=== PATIENT | female | born 1955 | race Caucasian/White ===

== ENCOUNTER 2019-07-30 09:12 | Outpatient (REF) | payer BC, SELFPAY ==
[2019-07-30 12:29] LABS: Cholesterol 263 mg/dL (0-200); Glucose 107 mg/dL (65-115); HDL Cholesterol 56 mg/dL (60-100); LDL Cholesterol Calculated 175 mg/dL (50-129); LDL HDL Ratio 3.13 RATIO (0.00-3.22); Triglycerides 159 mg/dL (0-150)
[2019-07-30 13:24] LABS: Estmated Average Glucose 111; Hemoglobin A1C 5.5 % (4.0-6.0)
== END 2019-07-30 09:13 | disposition home or self-care (01) ==
LOC: LAB 09:12
PROVIDERS: Family Provider Family Medicine; PCP Family Medicine; Visit Provider Dermatology
DX: Z01.89 Encounter for other specified special examinations (principal)
CPT/HCPCS: 80061; 82947; 83036

== ENCOUNTER → 2023-02-12 11:49 | Outpatient (BNVA) | payer MEDICARE, SELFPAY | PROVIDERS: Family Provider Family Medicine; PCP Clinical Nurse Specialist Adult Health; Visit Provider Clinical Nurse Specialist Adult Health | DX: I10 Essential (primary) hypertension (principal); N95.1 Menopausal and female climacteric states; F17.200 Nicotine dependence, unspecified, uncomplicated; H60.91 Unspecified otitis externa, right ear | CPT/HCPCS: 80053; 80061; 84443; 85025 ==

== ENCOUNTER 2023-03-12 15:04 | Outpatient (CLI) | payer MEDICARE, SELFPAY ==
--- NOTE | 2023-03-12 15:30 | XR_ITS ---
WS: [id number] SCREENING DEXA SCAN [id number] CLINICAL INFORMATION: post menopausal COMPARISON: None. FINDINGS: The L1-L4 bone mineral density measures 1.269 g/cm2. This corresponds to a T score score of 0.7 and Z score of 2.4. Left femoral neck bone mineral density measures 1.003 g/cm2. This corresponds to a T score of 0.0 and Z score of 1.3. Right femoral neck bone mineral density measures 0.957 g/cm2. This corresponds to a T score -0.4of an d Z score of 0.9. Mean femoral neck bone mineral density measures 0.980 g/cm2. This corresponds to a T score of -0.2 an d Z score of 1.1. IMPRESSION: Normal bone mineralization. Patient's FRAX calculated 10 year probability for major osteoporotic fracture is 9.2% and osteoporoti c hip fracture is 1.7%.
== END 2023-03-12 15:05 | disposition home or self-care (01) ==
PROVIDERS: Family Provider Family Medicine; PCP Clinical Nurse Specialist Adult Health; Visit Provider Clinical Nurse Specialist Adult Health
DX: N95.1 Menopausal and female climacteric states (principal)
CPT/HCPCS: 77080

== ENCOUNTER 2023-05-11 07:51 | Emergency (ER) | payer MEDICARE, SELFPAY ==
[2023-05-11 08:02] VITALS: BP 159/82; PULSE 79; RESP 16; TEMP 36.8; O2SAT 97
--- NOTE | 2023-05-11 08:32 | ECG_ITS ---
[facility] Test Date: 2023-05-11 Pat Name: Ricarda Hernandes Department: Room: Gender: Female Head Boys Tennis Coach: : 1955 Requested By: Anthony Woods Order Number: [id number] Aleyda MD: Howie Barton M.D. Measurements Intervals [place] Rate: 63 P: -31 MI: 156 QRS: 45 QRSD: 94 T: 50 QT: 410 QTc: 422 Interpretive Statements SINUS RHYTHM No previous ECG available for comparison Electronically Signed On 05-11-2023 22:06:51 SENIOR TECHNICAL ARCHITECT by Howie Barton M.D. [id number]
--- NOTE | 2023-05-11 08:36 | ED_ITS ---
HPI - General Adult General: Chief complaint: General Medical Stated complaint: Bp Time Seen by Provider: 05/11/23 08:19 Source: patient Mode of arrival: ambulatory History of Present Illness: 68-year-old female history hypertension her blood pressures been up to the 170s 180s overnight she has a little bit of a headache he did take her blood pressure medicine this morning. She denies any chest pain or discomfort metrical speech swallowing or balance Onset (ago): hour(s) Relieving factors: medication Exacerbating factors: none Associated symptoms: Deny chest pain, confusion, cough, diaphoresis, decreased appetite, dyspnea, fevers/chills, headache(s), malaise, nausea, rash, palpitations, seizures, short of breath, syncope, vomiting or weakness Treatments prior to arrival: none Review of Systems Const: Denies: malaise or diaphoresis Card: Denies: chest pain, palpitations or syncope Resp: Denies: dyspnea GI: Denies: nausea or vomiting : Denies: dysuria, urinary frequency or urinary urgency Musc: Denies: neck pain or back pain Skin/Breast: Denies: rash Neuro: Denies: headache(s) or confusion PFSH ED PFSH: Medical History Essential hypertension Tobacco dependence Surgical History Hx of cataract extraction Hx of hysterectomy Family History Father Cancer Hypertension Other CAD (coronary artery disease) Denies family history of Diabetes Clotting disorder Anesthesia complication Bleeding disorder Social History Smoking and tobacco/nicotine status: current every day tobacco/nicotine user cigarettes [ Other cigarette details: 50 pack year history] Alcohol intake: never Substance/Drug Use: never Marital status: Current occupational status: retired Current occupation: but now working at [employer] Physical Exam Const: COMMON NORMALS: no acute distress GENERAL APPEARANCE: cooperative and comfortable ORIENTATION/CONSCIOUSNESS: Yes awake, Yes oriented to person, Yes oriented to place and Yes oriented to time HENMT: COMMON NORMALS: normocephalic, atraumatic and hearing grossly normal bilaterally HEAD & SCALP: normocephalic and atraumatic Resp: COMMON NORMALS: normal respiratory effort, No retractions, No use of accessory muscles and clear to auscultation bilaterally AUSCULTATION: clear to auscultation bilaterally Cardio: COMMON NORMALS: regular rate, regular rhythm and No murmurs present (Cardio) RATE: regular rate RHYTHM: regular rhythm GI: COMMON NORMALS: Soft to palpation and No hepatosplenomegaly present AUSCULTATION: Yes normoactive bowel sounds PALPATION: Yes Soft to palpation, No Tenderness to palpation present (GI), No Guarding due to palpation present (GI) and Yes No hepatosplenomegaly present Extremity: COMMON NORMALS: normal to inspection, capillary refill normal, no clubbing, cyanosis or edema, no calf tenderness and no pedal edema Neuro: SENSORIUM/ORIENTATION: Yes oriented to person, Yes oriented to place and Yes oriented to time Skin: COMMON NORMALS: no rashes or lesions noted GENERAL SKIN EXAM: no rashes or lesions noted Course Vital Signs: Vital signs: Vital Signs Temperature 98.2 F 05/11/23 08:02 Pulse Rate 64 05/11/23 09:14 Respiratory Rate 16 05/11/23 09:14 Blood Pressure 140/74 05/11/23 09:14 Pulse Oximetry 94 05/11/23 09:14 Oxygen Delivery Me thod Room Air 05/11/23 08:02 [facility] - General Adult Medical Decision Making Blood pressure is stable no accelerated hypertension repeat pressure 140/74 do not recommend any change in medication at this point continue routine previously prescribed medications will log blood pressures follow-up with primary care Medical Records I reviewed the patient's medical records. Lab Data I reviewed the patient's lab results. 05/11/23 08:28 05/11/23 08:28 Laboratory Results WBC 9.13 10^3/uL (3.29-11.43) 05/11/23 08:28 RBC 4.40 10^6/uL (3.85-5.65) 05/11/23 08:28 Hgb 14.20 g/dL (11.27-16.99) 05/11/23 08:28 Hct 42.4 % (36-47) 05/11/23 08:28 MCV 96.4 fl (85-98) 05/11/23 08:28 MCH 32.3 pg (27-33) 05/11/23 08:28 MCHC 33.5 g/dL (30-55) 05/11/23 08:28 RDW 12.6 % (12.1-15.1) 05/11/23 08:28 Plt Count 181 10^3/cmm (157-399) 05/11/23 08:28 MPV 9.4 fL (7.4-10.4) 05/11/23 08:28 Neut % (Auto) 73.4 % 05/11/23 08:28 Lymph % (Auto) 20.4 % 05/11/23 08:28 Mccormick % (Auto) 4.7 % 05/11/23 08:28 Eos % (Auto) 1.0 % 05/11/23 08:28 Baso % (Auto) 0.2 % 05/11/23 08:28 Neut # (Auto) 6.70 10^3/uL (1.8-7.7) 05/11/23 08:28 Lymph # (Auto) 1.9 10^3/uL (0.8-4.8) 05/11/23 08:28 Mccormick # (Auto) 0.4 10^3/uL (0.2-0.9) 05/11/23 08:28 Eos # (Auto) 0.1 10^3/uL (0.0-0.8) 05/11/23 08:28 Baso # (Auto) 0.0 10^3/uL (0.0-0.1) 05/11/23 08:28 Nucleated RBC % (auto) 0 % 05/11/23 08:28 Nucleated RBCs # 0.0 /100WBC 05/11/23 08:28 Sodium 138 mmol/L (136-145) 05/11/23 08:28 Potassium 3.9 mmol/L (3.5-5.1) 05/11/23 08:28 Chloride 105 mmol/L (98-107) 05/11/23 08:28 Carbon Dioxide 24 mmol/L (22-29) 05/11/23 08:28 Anion Gap 12.9 (5-19) 05/11/23 08:28 BUN 15 mg/dL (8-23) 05/11/23 08:28 Creatinine 0.8 mg/dL (0.5-0.9) 05/11/23 08:28 GFR Calculation 71.5 mL/min (90-130) L 05/11/23 08:28 Glucose 96 mg/dL (65-115) 05/11/23 08:28 Calculated Osmolality 287 mOsm/kg (285-295) 05/11/23 08:28 Calcium 9.2 mg/dL (8.5-10.5) 05/11/23 08:28 No radiology studies performed this visit Discharge Plan Discharge Patient Disposition: Home Clinical Impression: Essential hypertension Condition: Stable Prescriptions: No Action losartan 25 mg tablet 25 mg PO DAILY Qty: 90 3RF Discharge Orders: Discharge ED (Routine); Ordered 05/11/23 Ordered By: Anthony Lubin Referrals: Ashok Vicente, BREAST BUFFER [Primary Care Provider] - Patient Instructions: Opioid Safety, Pain Management Activity Restrictions/Additional Instructions: Thank you for choosing [facility] for your healthcare needs today. Please realize this is an emergency room and that we are providing you with a medical screening exam and this may not be complete and all inclusive of all the testing and or work up that you may need to determine your ailment or severity of your illness. It is very important that you follow up as instructed or that you return to the Emergency Department should you have concerns or if your condition changes or worsens in any way. You are seen today for elevated blood pressure. Your blood pressure was slightly elevated in the emergency room but did not require any intervention. Recommend you continue current blood pressure medications monitor blood pressures at home and log them review with your primary care doctor within the next 1 to 2 weeks. Coding Level of Care Code ED Team Otr Truck Driver for Keyana Busby
[2023-05-11 08:40] LABS: Basophils % 0.2 %; Eosinophils # 0.1 10^3/uL (0.0-0.8); Hematocrit 42.4 % (36-47); Lymphocytes # 1.9 10^3/uL (0.8-4.8); Lymphocytes % 20.4 %; Mean Corpuscular HGB Conc 33.5 g/dL (30-55); Mean Corpuscular Hemoglobin 32.3 pg (27-33); Mean Corpuscular Volume 96.4 fl (85-98); Mean Platelet Volume 9.4 fL (7.4-10.4); Monocytes # 0.4 10^3/uL (0.2-0.9); Monocytes % 4.7 %; Neutrophils % 73.4 %; Nucleated Red Blood Cells % 0 %; Platelet Count 181 10^3/cmm (157-399); Red Cell Distribution Width 12.6 % (12.1-15.1); White Blood Count 9.13 10^3/uL (3.29-11.43)
[2023-05-11 08:48] VITALS: BP 138/75; PULSE 61; RESP 16; O2SAT 94
[2023-05-11 08:53] LABS: Anion Gap 12.9 (5-19); Blood Urea Nitrogen 15 mg/dL (8-23); Calcium 9.2 mg/dL (8.5-10.5); Carbon Dioxide 24 mmol/L (22-29); Chloride 105 mmol/L (98-107); Glomerular Filtration Rate 71.5 mL/min (90-130); Glucose 96 mg/dL (65-115); Osmolality Calculated 287 mOsm/kg (285-295); Potassium 3.9 mmol/L (3.5-5.1); Sodium 138 mmol/L (136-145)
[2023-05-11 09:14] VITALS: BP 140/74; PULSE 64; RESP 16; O2SAT 94
== END 2023-05-11 09:15 | disposition home or self-care (01) ==
PROVIDERS: Emergency Provider Family Medicine; PCP Clinical Nurse Specialist Adult Health
DX: I10 Essential (primary) hypertension (principal); F17.210 Nicotine dependence, cigarettes, uncomplicated
CPT/HCPCS: 36415; 80048; 85025; 93005; 99284

== ENCOUNTER 2023-07-22 08:04 | Outpatient (CLI) | payer MEDICARE, SELFPAY ==
--- NOTE | 2023-07-22 08:16 | MM_ITS ---
WS: [id number] BILATERAL 3D TOMOSYNTHESIS DIGITAL SCREENING MAMMOGRAPHY WITH CAD CLINICAL INFORMATION: screening for breast cancer HISTORY: Screening mammogram. No current complaints. COMPARISON: Baseline TECHNIQUE: Bilateral CC and MLO views. FINDINGS: Scattered fibroglandular densities bilaterally. No suspicious focal mass, asymmetry, calcifications, or architectural distortion. No evidence of malignancy. Incidental punctate and lucent centered calci fications. IMPRESSION: MM/[place] [id number] BI-RADS: 2-Benign FOLLOW UP: 1 Year Follow-up Recommend return to annual screening mammography.
== END 2023-07-22 08:05 | disposition home or self-care (01) ==
LOC: RAD 08:04
PROVIDERS: PCP Clinical Nurse Specialist Adult Health; Visit Provider Clinical Nurse Specialist Adult Health
DX: Z12.31 Encounter for screening mammogram for malignant neoplasm of breast (principal); R92.323 Mammographic fibroglandular density, bilateral breasts
CPT/HCPCS: 77063; 77067

== ENCOUNTER 2023-07-31 06:01 | Outpatient (CLI) | payer MEDICARE, SELFPAY ==
--- NOTE | 2023-07-31 06:15 | US_ITS ---
WS: [id number] INDICATION: LEFT upper chest lump TECHNIQUE: Ultrasound area of interest LEFT upper chest FINDINGS: Ultrasound soft tissue LEFT upper chest demonstrates a region of increased echogenicity cor responding to the area of interest. This most like represents a poorly circumscribed lipoma. No other suspicious findings. IMPRESSION: Suspected lipoma in the area of interest
== END 2023-07-31 06:02 | disposition home or self-care (01) ==
LOC: RAD 06:02
PROVIDERS: PCP Clinical Nurse Specialist Adult Health; Visit Provider Clinical Nurse Specialist Adult Health
DX: D17.1 Benign lipomatous neoplasm of skin and subcutaneous tissue of trunk (principal); I10 Essential (primary) hypertension
CPT/HCPCS: 76882

== ENCOUNTER → 2023-08-21 08:08 | Outpatient (BNVA) | payer MEDICARE, SELFPAY | PROVIDERS: PCP Clinical Nurse Specialist Adult Health; Referring Provider Clinical Nurse Specialist Adult Health; Visit Provider Internal Medicine Cardiovascular Disease | DX: I49.1 Atrial premature depolarization (principal); I49.3 Ventricular premature depolarization; I47.10 Supraventricular tachycardia, unspecified | CPT/HCPCS: 93246 ==

== ENCOUNTER → 2023-10-30 07:58 | Outpatient (BNVA) | payer MEDICARE, SELFPAY | PROVIDERS: PCP Clinical Nurse Specialist Adult Health; Visit Provider Clinical Nurse Specialist Adult Health | DX: I10 Essential (primary) hypertension (principal) | CPT/HCPCS: 80053; 80061; 85025 ==

== ENCOUNTER → 2023-11-06 08:17 | Outpatient (BNVA) | payer MEDICARE, SELFPAY | PROVIDERS: PCP Clinical Nurse Specialist Adult Health; Visit Provider Clinical Nurse Specialist Adult Health | DX: R00.2 Palpitations (principal); I10 Essential (primary) hypertension | CPT/HCPCS: 80048 ==

== ENCOUNTER → 2023-11-27 07:34 | Outpatient (BNVA) | payer MEDICARE, SELFPAY | PROVIDERS: PCP Clinical Nurse Specialist Adult Health; Visit Provider Clinical Nurse Specialist Adult Health | DX: I10 Essential (primary) hypertension (principal) | CPT/HCPCS: 80048 ==

== ENCOUNTER → 2023-12-11 08:26 | Outpatient (BNVA) | payer MEDICARE, SELFPAY | PROVIDERS: PCP Clinical Nurse Specialist Adult Health; Visit Provider Clinical Nurse Specialist Adult Health | DX: I10 Essential (primary) hypertension (principal); R00.2 Palpitations | CPT/HCPCS: 80048 ==

== ENCOUNTER → 2024-03-11 07:18 | Outpatient (BNVA) | payer MEDICARE, SELFPAY | PROVIDERS: PCP Clinical Nurse Specialist Adult Health; Visit Provider Clinical Nurse Specialist Adult Health | DX: I10 Essential (primary) hypertension (principal) | CPT/HCPCS: 80048 ==

== ENCOUNTER 2024-07-04 08:36 | Emergency (ER) | payer MEDICARE, SELFPAY ==
[2024-07-04 08:46] VITALS: BP 179/86; PULSE 63; RESP 21; TEMP 36.8; O2SAT 96; BMI 26.5
--- NOTE | 2024-07-04 10:15 | ED_ITS ---
HPI - General Adult General: Chief complaint: General Medical Stated complaint: high bp Time Seen by Provider: 07/04/24 08:55 History of Present Illness: 69-year-old female presents to the emerg ency department reporting elevated blood pressure. Patient reports for the last year she has had intermittent palpitations. She had an episode last night where she felt like her heart was racing so she decided to check her pulse. She was using her blood pressure cuff to check her pulse. Her pulse was 69 but her blood pressure was elevated to 196/80. She reports she does have hypertension and takes metoprolol tartrate 12.5 mg twice a day and losartan 50 mg once a day. This has not changed over the last year. However, she does not check her blood pressure regularly and does not know whether the medications have been working or not. She denies any headache, visual changes, neurologic symptoms, chest pressure, chest tightness, shortness of breath, diaphoresis, nausea, syncope or presyncope, swelling, orthopnea, fever, chills, hemoptysis. Blood pressure on arrival was 179/86. She did take her losartan 50 mg and metoprolol 12.5 mg this morning around 7:15 AM. Associated symptoms: Deny chest pain, dyspnea, headache(s), nausea, rash, syncope or vomiting Related Data Previous Rx's Medication Instructions Recorded losartan 50 mg tablet 50 mg PO DAILY #90 tabs 03/11/24 aspirin 81 mg tablet,delayed 81 mg PO DAILY #90 tabs 07/04/24 release (Adult Aspirin Regimen) metoprolol succinate 50 mg 50 mg PO DAILY #90 tabs 07/04/24 tablet,extended release 24 hr Allergies Allergy/AdvReac Type Severity Reaction Status Date / Time Sulfa (Sulfonamide Allergy Severe swelling Verified 07/04/24 08:51 Antibiotics) and whelps diphenhydramine Allergy Mild hives Verified 07/04/24 08:51 [From Benadryl] Review of Systems General: Reports: 10 or more systems reviewed and unremarkable except in HPI and below Const: Denies: fever(s) or chills Eyes: Denies: change in vision ENMT: Denies: throat pain Card: Denies: chest pain, edema or syncope Resp: Denies: dyspnea or productive cough GI: Denies: abdominal pain, nausea, vomiting or diarrhea : Denies: flank pain, dysuria or urinary frequency Musc: Denies: neck pain, back pain, extremity pain or extremity swelling Skin/Breast: Denies: rash or erythema Neuro: Denies: headache(s), numbness in extremities, weakness in extremities, lack of coordination or difficulty walking PFSH ED PFSH: Medical History Lipoma of anterior chest wall Post menopausal syndrome Essential hypertension Tobacco dependence Surgical History Hx of cataract extraction Hx of hysterectomy Family History Father Cancer Hypertension Other CAD (coronary artery disease) Denies family history of Diabetes Clotting disorder Anesthesia complication Bleeding disorder Social History Smoking and tobacco/nicotine status: current every day tobacco/nicotine user cigarettes [ Other cigarette details: 50 pack year history] Alcohol intake: never Substance/Drug Use: never Marital status: Current occupational status: retired Current occupation: but now working at [employer] Physical Exam Const: COMMON NORMALS: no limitations, alert and well nourished EXAM LIMITATIONS: no altered mental status HENMT: COMMON NORMALS: normocephalic, atraumatic and external ears normal HEAD & SCALP: normocephalic and atraumatic EXTERNAL EAR: Yes external ears normal MOUTH: no muffled voice Eye: COMMON NORMALS: EOMs intact bilaterally, conjunctivae normal and no scleral icterus CONJUNCTIVA: Yes conjunctivae normal Neck/C-Spine: COMMON NORMALS: no JVD GENERAL: Yes normal visual inspection and Yes trachea midline Resp: COMMON NORMALS: normal respiratory effort, No use of accessory muscles and clear to auscultation bilaterally AUSCULTATION: clear to auscultation bilaterally Cardio: COMMON NORMALS: no JVD, regular rate and regular rhythm RATE: regular rate RHYTHM: regular rhythm GI: COMMON NORMALS: Soft to palpation and non-tender PALPATION: Yes Soft to palpation and No Guarding due to palpation present (GI) Extremity: COMMON NORMALS: normal to inspection Neuro: COMMON NORMALS: moves all extremities, no focal motor deficits and no sensory deficits noted SENSORIUM/ORIENTATION: Yes alert SPEECH: speech normal Psych: COMMON NORMALS: mental status grossly normal, Normal thought process present, cooperative, normal affect and speech normal SPEECH: Yes normal speech THOUGHT PROCESS: Normal thought process present Skin: COMMON NORMALS: no rashes or lesions noted, turgor normal and no jaundice GENERAL SKIN EXAM: no rashes or lesions noted and turgor normal Course Vital Signs: Vital signs: Vital Signs Temperature 98.2 F 07/04/24 08:46 Pulse Rate 63 07/04/24 08:46 Respiratory Rate 21 H 07/04/24 08:46 Blood Pressure 179/86 07/04/24 08:46 Pulse Oximetry 96 07/04/24 08:46 Oxygen Delivery Me thod Room Air 07/04/24 08:46 MDM - General Adult Medical Decision Making Patient presents with asymptomatic hypertension. She only found out that she had elevated blood pressure due to checking her pulse with her blood pressure machine last night. She does have a history of chronic hypertension and has been compliant with her medication. She has had these intermittent palpitations. She reports that she wore a heart monitor about 1 year ago and her doctor told her the top of her heart with sometimes too fast. On examination she does not have any signs of heart failure and I cannot hear any murmur. Her lungs are clear. Her rate is normal and her rhythm is regular today. We discussed the patient's symptoms and possible workup and plan. Ultimately we decided to try and treat her possible arrhythmia (palpitations) and her hypertension both by increasing her metoprolol. We are going to change it from metoprolol to tartrate 12.5 mg twice daily to metoprolol succinate 50 mg once daily. I am also going to add an enteric-coated aspirin daily as she is a smoker as well. I have sent in a referral through case management for her to follow-up with cardiology for palpitations and hypertension. The patient has adamantly denied any other symptoms. Therefore I do not think any other emergent workup or admission is indicated at this time. Patient was given specific return precautions. I have counseled the patient about the risks of tobacco smoking and strongly encouraged her to quit, emphasizing the importance on her overall health. Patient and in agreement with plan No radiology studies performed this visit Discharge Plan Discharge Patient Disposition: Home Clinical Impression: Palpitations, Asymptomatic hypertension Condition: Stable Prescriptions: New aspirin [Adult Aspirin Regimen] 81 mg tablet,delayed release (DR/EC) 81 mg PO DAILY Qty: 90 0RF metoprolol succinate 50 mg tablet extended release 24 hr 50 mg PO DAILY Qty: 90 0RF Discontinued metoprolol tartrate 25 mg tablet 12.5 mg PO BID Qty: 90 3RF No Action losartan 50 mg tablet 50 mg PO DAILY Qty: 90 3RF Discharge Orders: Discharge ED (Routine); Ordered 07/04/24 Ordered By: Osmany Delarosa Referrals: Ashok Vicente, SUPERVISOR [employer]ING [Primary Care Provider] - Discharge Diet: Usual diet Discharge Activity: Increase activity as tolerated Patient Instructions: Heart Palpitations (ED), Hypertension (ED) Activity Restrictions/Additional Instructions: You are experiencing intermittent heart palpitations for the last year. You are also experiencing elevated blood pressure, though it is unclear how long it has been elevated. We are going to try to treat both of these by changing your meto prolol to tartrate 12.5 mg twice a day to metoprolol succinate 50 mg once a day. I have also requested that you take aspirin 81 mg with an enteric coating once daily. It is very important that you work hard to quit smoking; it is the most important thing you can do to improve your health. I have sent in a referral for you to follow-up with cardiology as I would recommend doing an echocardiogram and possibly stress testing given your risk factors. Your laser beam cutter may also consider doing an ambulatory tapeman to see if you are having an abnormal heart rhythm. Return to the emergency department if you feel like passing out, chest discomfort or pressure, shortness of breath, unusual sweating, unexplained jaw pain arm pain or shoulder pain, or other urgent symptoms. Coding Level of Care Code ED Certified Caregiver for Keyana Busby
[2024-07-04 10:41] VITALS: BP 154/93; PULSE 70; O2SAT 95
--- NOTE | 2024-07-05 09:31 | DCPLANNER ---
messaged heart care for er f/u
== END 2024-07-04 10:42 | disposition home or self-care (01) ==
PROVIDERS: Emergency Provider Emergency Medicine; PCP Clinical Nurse Specialist Adult Health
DX: R00.2 Palpitations (principal); I10 Essential (primary) hypertension; F17.210 Nicotine dependence, cigarettes, uncomplicated
CPT/HCPCS: 99283

== ENCOUNTER → 2024-08-26 13:03 | Outpatient (BNVA) | payer MEDICARE, SELFPAY | PROVIDERS: PCP Clinical Nurse Specialist Adult Health; Visit Provider Internal Medicine | DX: R07.9 Chest pain, unspecified (principal); R00.1 Bradycardia, unspecified; I10 Essential (primary) hypertension; R00.2 Palpitations | CPT/HCPCS: 93005; 99204 ==

== ENCOUNTER 2024-09-16 07:57 | Outpatient (CLI) | payer MEDICARE, SELFPAY ==
--- NOTE | 2024-09-16 | ECG_ITS ---
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 The perfusion scan will be documented separately. DATA: Baseline heart rate was 53 beats per minute. Baseline blood pressure was 164/73 millimeters of mercury. Target heart rate was 152. Maximum heart rate achieved was 86. which was 56 % of the predicted target heart rate. Maximum blood pressure was 164/73 millimeters of mercury. The reason for ending the test was completion of the protocol. The patient did not experience any symptoms. ELECTROCARDIOGRAM: BASELINE: Sinus bradycardia normal axis. Interventricular conduction delay, otherwise, no ST-T changes suggestive of ischemia noted. No arrhythmia noted. EXERCISE: After Lexiscan injection, no ST-T changes suggestive of ischemic noted. No arrhythmia noted. CONCLUSION: Please note due to baseline abnormality of the EKG specificity and sensitivity of the EKG portion of LexiScan MIBI stress test will be low 1. EKG not suggestive of ischemia 2. Lexiscan injection unremarkable. 3. Perfusion scan will be documented separately. Electronically Signed On 10-04-2024 20:07:54 CDT by BARRY MARTINEZ [email or web address] [id number]
[2024-09-16 08:01] VITALS: BMI 28.3
--- NOTE | 2024-09-16 08:02 | NMCV_ITS ---
NM marjan perf SPECT r/s* [id number] Ricarda Hernandes Age: 69 Gender: F : 1955 Exam Date: 09/16/2024 08:02 Ordering Phys: Thomas Prado M.D ([email or web address]) Technologist: LINA Galindo Exam Location: [facility] Indications: cp STRESS TEST [facility] IMAGE PROTOCOL Rest/Stress 1 Lexiscan Day Radiopharmaceutical Dose (mCi) Administration Site Administered by Rest: Tc-99m 10.5 IV Gabbie Palacios [facility] Sestamibi Stress:Tc-99m 32.7 IV Gabbie Patriciagle, [facility] Sestamibi Rest: 16-Sep-2024 60 Discovery 630 Stress: 16-Sep-2024 30 Discovery 630 0.4mg Lexiscan. Images obtained in supine and prone position. SPECT RESULTS Technical Quality: Good Raw Data Analysis: Normal Image Corrections: No attenuation or motion correction applied Summed Stress Score: 3 Summed Rest Score: 0 Summed Difference Score: 3 PERFUSION FINDINGS SPECT images demonstrate homogeneous tracer distribution throughout the myocardium. FUNCTIONAL RESULTS (calculated via Gated SPECT) Stress Image LV EF (%): 76 Stress EDV (mL):63 TID: 1.18 Stress ESV (mL):15 FUNCTIONAL FINDINGS: There is normal left ventricular systolic function. IMPRESSIONS 1. Normal myocardial perfusion imaging with no evidence of ischemia 2. LV systolic function is normal Thomas Prado MD (Electronically Signed) Final Date: 16 September 2024 10:37 S
[2024-09-16] MEDS: regadenoson 0.4 Mg/5 ml Syringe IVP (09:25)
[2024-09-16 09:36] VITALS: BP 125/59; PULSE 71
--- NOTE | 2024-09-16 12:45 | USCV_ITS ---
Ricarda Hernandes Age: 69 Gender: F : 1955 Exam Date: 09/16/2024 11:13 Ordering Phys: Thomas Prado M.D ([email or web address]) Technologist: [place] [facility] [place]: chest pain BP: 140 / 70 HR: 54 Rhythm: Sinus Technical Quality: Adequate MEASUREMENTS (Male / Female) Normal Values 2D ECHO LV Diastolic Diameter PLAX 4.3 cm 4.2 - 5.9 / 3.9 - 5.3 cm IVS Diastolic Thickness 1.2 cm 0.6 - 1.0 / 0.6 - 0.9 cm IVS Systolic Thickness 1.5 cm LVPW Diastolic Thickness 1.5 cm 0.6 - 1.0 / 0.6 - 0.9 cm LVPW Systolic Thickness 1.8 cm LVOT Diameter 2.0 cm LV Ejection Fraction 2D Teich 58.7 % LV Ejection Fraction MOD 4C 68.1 % LV Ejection Fraction MOD 2C 57.4 % LV Ejection Fraction 2C AL 57.2 % LA Diameter 4.2 cm RA Systolic Volume 4C AL 31.2 ml RA Systolic Volume 4C MOD 29.4 ml Aorta at Sinotubular Diameter 2.9 cm IVC Diameter 1.5 cm M-MODE LA Ao Ratio MM 1.4 AV Cusp Separation MM 3.2 cm DOPPLER AV Peak Velocity 145.0 cm/s LVOT Peak Velocity 91.0 cm/s AV Area Cont Eq vti 2.1 cm squared AV Area Cont Eq pk 2.0 cm squared MV Peak Velocity 125.0 cm/s MV Area PHT 3.3 cm squared Mitral E to A Ratio 1.0 TV Peak Velocity 173.5 cm/s TR Peak Velocity 233.0 cm/s TR Peak Gradient 21.7 mmHg TV Peak E Velocity 91.0 cm/s PV Peak Velocity 80.5 cm/s FINDINGS Left Ventricle Left ventricle is normal in size. LV systolic function is normal with EF of 55-60%. No regional wall motion abnormalities are seen. Right Ventricle Normal in size and function. Right Atrium Normal in size Left Atrium Normal in size. Mitral Valve Structurally normal mitral valve. Mild mitral regurgitation. Aortic Valve Structurally normal aortic valve. No significant stenosis or regurgitation. Tricuspid Valve Pulmonic Valve Trace pulmonic regurgitation. Pericardium Normal. Aorta Normal in size IVC Appears to be normal CONCLUSIONS LV systolic function is normal with EF of 55-60% Mild mitral regurgitation Trace pulmonic regurgitation No comparison studies are available. Thomas Prado MD (Electronically Signed) Final Date: 28 September 2024 13:07 S
== END 2024-09-16 07:58 | disposition home or self-care (01) ==
PROVIDERS: PCP Family Medicine; Visit Provider Internal Medicine
DX: R07.9 Chest pain, unspecified (principal); R06.02 Shortness of breath; I34.0 Nonrheumatic mitral (valve) insufficiency
CPT/HCPCS: 36415; 78452; 93017; 93306; 96374; A9500; J2785

== ENCOUNTER → 2024-10-28 12:52 | Outpatient (BNVA) | payer MEDICARE, SELFPAY | PROVIDERS: PCP Family Medicine; Visit Provider Internal Medicine | DX: I10 Essential (primary) hypertension (principal); R00.2 Palpitations; F17.210 Nicotine dependence, cigarettes, uncomplicated | CPT/HCPCS: 99214 ==

== ENCOUNTER 2024-12-02 14:46 | Outpatient (CLI) | payer MEDICARE, SELFPAY ==
--- NOTE | 2024-12-02 15:00 | MM_ITS ---
WS: [id number] BILATERAL 3D TOMOSYNTHESIS DIGITAL SCREENING MAMMOGRAPHY WITH CAD CLINICAL INFORMATION: Screening mammogram HISTORY: Screening mammogram. No current complaints. COMPARISON: 2023 TECHNIQUE: Bilateral CC and MLO views. FINDINGS: The breasts are composed of heterogeneous fibroglandular density tissue, which can limit the detection of small underlying mass lesions. No suspicious mass, asymmetry, calcifications, or architectural distortion. No evidence of malignancy. Incidental punctate and lucent centered calcifications. MM/MM [facility] tomosynthesis [id number] IMPRESSION: DENSITY: The breasts are heterogeneously dense, which may obscure small masses. BI-RADS: 2 - Benign FOLLOW UP: 1 Year Follow-up Recommend return to annual screening mammography.
== END 2024-12-02 14:47 | disposition home or self-care (01) ==
LOC: RAD 14:47
PROVIDERS: PCP Family Medicine; Visit Provider Family Medicine
DX: Z12.31 Encounter for screening mammogram for malignant neoplasm of breast (principal); R92.333 Mammographic heterogeneous density, bilateral breasts; R92.1 Mammographic calcification found on diagnostic imaging of breast
CPT/HCPCS: 77063; 77067

== ENCOUNTER → 2024-12-10 07:33 | Outpatient (BNVA) | payer MEDICARE, SELFPAY | PROVIDERS: PCP Family Medicine; Visit Provider Family Medicine | DX: Z00.00 Encounter for general adult medical examination without abnormal findings (principal); Z13.6 Encounter for screening for cardiovascular disorders; E55.9 Vitamin D deficiency, unspecified; Z51.81 Encounter for therapeutic drug level monitoring | CPT/HCPCS: 80053; 80061; 82306; 85025 ==

== ENCOUNTER → 2025-02-02 07:52 | Outpatient (BNVA) | payer MEDICARE, SELFPAY | PROVIDERS: PCP Family Medicine; Visit Provider Family Medicine | DX: Z51.81 Encounter for therapeutic drug level monitoring (principal); E87.6 Hypokalemia; R10.13 Epigastric pain | CPT/HCPCS: 80053; 83690 ==

== ENCOUNTER 2025-02-07 17:25 | Emergency (ER) | payer MEDICARE, SELFPAY ==
[2025-02-07 17:28] VITALS: BP 163/73; PULSE 64; TEMP 37.2; O2SAT 96; BMI 29.2
--- NOTE | 2025-02-07 17:29 | ECG_ITS ---
[employer] Test Date: 2025-02-07 Pat Name: Ricarda Hernandes Department: Room: Gender: Female Director Investment Banking: : 1955 Requested By: Joyce Painting Order Number: [id number] Aleyda MD: Howie Barton M.D. Measurements Intervals Triangle Rate: 61 P: -48 KS: 172 QRS: 57 QRSD: 96 T: 40 QT: 438 QTc: 444 Interpretive Statements SINUS RHYTHM LOW QRS VOLTAGE IN PRECORDIAL LEADS [QRS DEFLECTION < 1.0 mV IN CHEST LEADS] INTERPRETATION BASED ON A DEFAULT AGE OF 40 YEARS Compared to ECG 08/26/2024 13:12:16 Low QRS voltage now present Sinus bradycardia no longer present Electronically Signed On 02-12-2025 09:16:22 CDT by Howie Barton M.D. [email or web address] [id number]
--- NOTE | 2025-02-07 17:30 | XRR_ITS ---
PROCEDURE INFORMATION: Exam: XR Chest Exam date and time: 02/07/2025 5:46 PM Age: 69 years old Clinical indication: Pain; Chest pressure; Additional info: Chest pain TECHNIQUE: Imaging protocol: Radiologic exam of the chest. Views: 1 view. COMPARISON: No relevant prior studies available. FINDINGS: Lungs: Unremarkable. No consolidation. Pleural spaces: No pneumothorax. Blunting of the left costophrenic angle which may represent a small effusion versus superimposition of structures due to patient rotation. Heart/Mediastinum: Unremarkable. No cardiomegaly. Bones/joints: Unremarkable. XR/XR chest 1V portable [id number] IMPRESSION: Questionable small left pleural effusion, otherwise unremarkable chest radiograph.
--- NOTE | 2025-02-07 17:39 | W.ED.CHESTPA ---
Documented by User: Anthony Lubin, DO 02/08/25 13:57 HPI - Chest Pain General: Chief Complaint: Chest Pain Stated Complaint: chest pain, tingling in L hand Time Seen by Provider: 02/07/25 17:29 History of Present Illness: 69-year-old female presents to the emergency room with complaints of episodic chest pain. She had chest pain earlier this year and had a stress test and echocardiogram both of which were normal. 5 days ago she was told her potassium was very low and she started on oral potassium supplement. She was at rest had a short burst of chest pain that lasted few seconds and then be gone. She has not had any other episodes she denies shortness of breath no hemoptysis. She has a chronic baseline cough from smoking which remains unchanged. No history of PE or DVT. Associated symptoms: Deny abdominal pain, dyspnea or fever(s) Related Data Previous Rx's ?Medication ?Instructions ?Recorded aspirin 81 mg tablet,delayed 81 mg PO DAILY #90 tabs 07/04/24 release (Adult Aspirin Regimen) metoprolol succinate 50 mg 50 mg PO DAILY #90 tabs 10/04/24 tablet,extended release 24 hr valsartan 160 mg tablet 160 mg PO DAILY #90 tabs 11/18/24 amlodipine 5 mg tablet 5 mg PO DAILY #30 tabs 12/10/24 furosemide 40 mg tablet 40 mg PO QDAY #30 tabs 12/10/24 spironolactone 25 mg tablet 25 mg PO DAILY #30 tabs 12/10/24 nitroglycerin 0.4 mg sublingual 0.4 mg sublingual Q5M PRN chest 02/02/25 tablet (Nitrostat) pain #30 tabs omeprazole 40 mg capsule,delayed 40 mg PO DAILY #30 caps 02/02/25 release potassium chloride 20 mEq 20 meq PO BID #60 tabs 02/03/25 tablet,extended release(part/cryst) (Klor-Con M) Allergies Allergy/AdvReac Type Severity Reaction Status Date / Time Sulfa (Sulfonamide Allergy Severe swelling Verified 02/07/25 17:37 Antibiotics) and whelps diphenhydramine (From Allergy Mild hives Verified 02/07/25 17:37 Benadryl) Review of Systems Const: Denies: fever(s) or chills Card: Reports: chest pain Resp: Denies: dyspnea GI: Denies: abdominal pain : Denies: dysuria, urinary frequency or urinary urgency Musc: Denies: neck pain or back pain Skin/Breast: Denies: rash PFSH ED PFSH: Medical History Lipoma of anterior chest wall Post menopausal syndrome Essential hypertension Tobacco dependence Surgical History Hx of cataract extraction Hx of hysterectomy Family History Father Cancer Colon cancer, prostate cancer Hypertension Colon cancer Other CAD (coronary artery disease) Denies family history of Diabetes Clotting disorder Anesthesia complication Bleeding disorder Social History Smoking and tobacco/nicotine status: never used tobacco/nicotine Alcohol intake: never Substance/Drug Use: never Marital status: Current occupational status: retired Current occupation: Working at [employer] Physical Exam Const: GENERAL APPEARANCE: cooperative ORIENTATION/CONSCIOUSNESS: Yes awake, Yes oriented to person, Yes oriented to place and Yes oriented to time HENMT: COMMON NORMALS: normocephalic, atraumatic and hearing grossly normal bilaterally HEAD & SCALP: normocephalic and atraumatic Resp: COMMON NORMALS: normal respiratory effort, No retractions, No use of accessory muscles and clear to auscultation bilaterally AUSCULTATION: clear to auscultation bilaterally Cardio: COMMON NORMALS: regular rate, regular rhythm and No murmurs present (Cardio) RATE: regular rate RHYTHM: regular rhythm GI: COMMON NORMALS: Soft to palpation and No hepatosplenomegaly present AUSCULTATION: Yes normoactive bowel sounds PALPATION: Yes Soft to palpation, No Tenderness to palpation present (GI), No Guarding due to palpation present (GI) and Yes No hepatosplenomegaly present Extremity: COMMON NORMALS: normal to inspection, capillary refill normal, no clubbing, cyanosis or edema, no calf tenderness and no pedal edema Neuro: SENSORIUM/ORIENTATION: Yes oriented to person, Yes oriented to place and Yes oriented to time Skin: COMMON NORMALS: no rashes or lesions noted GENERAL SKIN EXAM: no rashes or lesions noted Course Vital Signs: Vital signs: Vital Signs Temperature 98.9 F 02/07/25 17:28 Pulse Rate 52 L 02/07/25 19:08 Respiratory Rate 18 02/07/25 19:00 Blood Pressure 137/51 02/07/25 19:08 Pulse Oximetry 95 02/07/25 19:08 Oxygen Delivery Me thod Room Air 02/07/25 18:40 MDM - Chest Pain Medical Decision Making Care signed out to Dr. Valera at change of shift. See final notes for diagnosis and disposition. Signout from Dr. Lubin at 6 PM. Patient here with chest pain, and low potassium. On reassessment I talked with her about her test results. Her troponin was unremarkable. Her potassium has improved from when it was checked this last week and is now 3.1. She is asymptomatic at this time. Patient had normal cardiac perfusion imaging 5 months ago. Her heart score is less than 3 putting her at less than 1.7% of MACE. We discussed symptoms that should prompt immediate return to the emergency department. Will discharge home with precautions to return for worsening or changing symptoms. Medical Records Lexiscan sestamibi stress test 09/16/2024 There is normal left ventricular systolic function. IMPRESSIONS 1. Normal myocardial perfusion imaging with no evidence of ischemia 2. LV systolic function is normal Thomas Prado MD (Electronically Signed) Final Date: 16 September 2024 Echocardiogram 09/16/2024 CONCLUSIONS LV systolic function is normal with EF of 55-60% Mild mitral regurgitation Trace pulmonic regurgitation No comparison studies are available. Thomas Prado MD (Electronically Signed) Final Date: 28 September 2024 Lab Data 02/07/25 17:58 02/07/25 17:58 Radiology Impressions Chest X-Ray 02/07/25 17:30 IMPRESSION: Questionable small left pleural effusion, otherwise unremarkable chest radiograph. Laboratory Results WBC 9.78 10^3/uL (3.29-11.43) 02/07/25 17:58 RBC 4.32 10^6/uL (3.85-5.65) 02/07/25 17:58 Hgb 13.40 g/dL (11.27-16.99) 02/07/25 17:58 Hct 39.6 % (36-47) 02/07/25 17:58 MCV 91.7 fl (85-98) 02/07/25 17:58 MCH 31.0 pg (27-33) 02/07/25 17:58 MCHC 33.8 g/dL (30-55) 02/07/25 17:58 RDW 13.3 % (12.1-15.1) 02/07/25 17:58 Plt Count 225 10^3/cmm (157-399) 02/07/25 17:58 MPV 9.3 fL (7.4-10.4) 02/07/25 17:58 Neut % (Auto) 64.6 % 02/07/25 17:58 Lymph % (Auto) 27.8 % 02/07/25 17:58 [place] % (Auto) 5.7 % 02/07/25 17:58 Eos % (Auto) 1.2 % 02/07/25 17:58 Baso % (Auto) 0.4 % 02/07/25 17:58 Neut # (Auto) 6.31 10^3/uL (1.8-7.7) 02/07/25 17:58 Lymph # (Auto) 2.7 10^3/uL (0.8-4.8) 02/07/25 17:58 [place] # (Auto) 0.6 10^3/uL (0.2-0.9) 02/07/25 17:58 Eos # (Auto) 0.1 10^3/uL (0.0-0.8) 02/07/25 17:58 Baso # (Auto) 0.0 10^3/uL (0.0-0.1) 02/07/25 17:58 Nucleated RBC % (auto) 0 % 02/07/25 17:58 Nucleated RBCs # 0.0 /100WBC 02/07/25 17:58 Sodium 133 mmol/L (136-145) L 02/07/25 17:58 Potassium 3.1 mmol/L (3.5-5.1) L 02/07/25 17:58 Chloride 98 mmol/L (98-107) 02/07/25 17:58 Carbon Dioxide 22 mmol/L (22-29) 02/07/25 17:58 Anion Gap 16.1 (5-19) 02/07/25 17:58 BUN 10 mg/dL (8-23) 02/07/25 17:58 Creatinine 0.9 mg/dL (0.5-0.9) 02/07/25 17:58 GFR Calculation 62.3 mL/min (90-130) L 02/07/25 17:58 Glucose 125 mg/dL (65-115) H 02/07/25 17:58 Calculated Osmolality 277 mOsm/kg (285-295) L 02/07/25 17:58 Calcium 8.5 mg/dL (8.5-10.5) 02/07/25 17:58 Magnesium 1.9 mg/dL (1.7-2.3) 02/07/25 17:58 Total Bilirubin 0.4 mg/dL (0.15-1.2) 02/07/25 17:58 AST 12 U/L (0-32) 02/07/25 17:58 ALT 11 U/L (0-33) 02/07/25 17:58 Alkaline Phosphatase 70 U/L (35-105) 02/07/25 17:58 Creatine Kinase 70 U/L (26-192) 02/07/25 17:58 Troponin T Baseline 8 ng/L (0-10) 02/07/25 17:58 NT-Pro-B Natriuret Pep 842 pg/mL (0-125) H 02/07/25 17:58 Total Protein 7.0 g/dL (6.6-8.7) 02/07/25 17:58 Albumin 4.1 g/dL (3.5-5.2) 02/07/25 17:58 Globulin 2.9 g/dL (1.3-4.6) 02/07/25 17:58 EKG Data EKG 1: Interpretation: EKG 02/07/2025 1733 normal sinus rhythm rate of 61 MA interval 172 QT 442. No acute ST elevation. Compared to EKG 08/26/2024 Discharge Plan Discharge Patient Disposition: Home Clinical Impression: Chest pain of uncertain etiology Condition: Stable Prescriptions: No Action spironolactone 25 mg tablet 25 mg PO DAILY Qty: 30 6RF amlodipine 5 mg tablet 5 mg PO DAILY Qty: 30 3RF furosemide 40 mg tablet 40 mg PO QDAY Qty: 30 3RF omeprazole 40 mg capsule,delayed release(DR/EC) 40 mg PO DAILY Qty: 30 6RF nitroglycerin [Nitrostat] 0.4 mg tablet, sublingual 0.4 mg sublingual Q5M PRN (Reason: chest pain) Qty: 30 0RF Rx Instructions: do not exceed 3 doses per episode metoprolol succinate 50 mg tablet extended release 24 hr 50 mg PO DAILY Qty: 90 3RF valsartan 160 mg tablet 160 mg PO DAILY Qty: 90 3RF potassium chloride [Klor-Con M20] 20 mEq tablet,ER particles/crystals 20 meq PO BID Qty: 60 0RF aspirin [Adult Aspirin Regimen] 81 mg tablet,delayed release (DR/EC) 81 mg PO DAILY Qty: 90 0RF Discharge Orders: Discharge ED (Routine); Ordered 02/07/25 Ordered By: Celestine Valera Referrals: Roel Arizmendi MD [Primary Care Provider, Family Practice] Patient Instructions: Chest Pain (ED), Patient Portal & [facility]lee Instructions Print Language: Croatian Coding Level of Care Code ED Retail Management Trainee for Chg Fwd Documented by User: Celestine Valera MD 02/07/25 19:04 HPI - Chest Pain General: Chief Complaint: Chest Pain Stated Complaint: chest pain, tingling in L hand Time Seen by Provider: 02/07/25 17:29 Related Data Previous Rx's ?Medication ?Instructions ?Recorded aspirin 81 mg tablet,delayed 81 mg PO DAILY #90 tabs 07/04/24 release (Adult Aspirin Regimen) metoprolol succinate 50 mg 50 mg PO DAILY #90 tabs 10/04/24 tablet,extended release 24 hr valsartan 160 mg tablet 160 mg PO DAILY #90 tabs 11/18/24 amlodipine 5 mg tablet 5 mg PO DAILY #30 tabs 12/10/24 furosemide 40 mg tablet 40 mg PO QDAY #30 tabs 12/10/24 spironolactone 25 mg tablet 25 mg PO DAILY #30 tabs 12/10/24 nitroglycerin 0.4 mg sublingual 0.4 mg sublingual Q5M PRN chest 02/02/25 tablet (Nitrostat) pain #30 tabs omeprazole 40 mg capsule,delayed 40 mg PO DAILY #30 caps 02/02/25 release potassium chloride 20 mEq 20 meq PO BID #60 tabs 02/03/25 tablet,extended release(part/cryst) (Klor-Con M) Allergies Allergy/AdvReac Type Severity Reaction Status Date / Time Sulfa (Sulfonamide Allergy Severe swelling Verified 02/07/25 17:37 Antibiotics) and whelps diphenhydramine (From Allergy Mild hives Verified 02/07/25 17:37 Benadryl) PFSH ED PFSH: Medical History Lipoma of anterior chest wall Post menopausal syndrome Essential hypertension Tobacco dependence Surgical History Hx of cataract extraction Hx of hysterectomy Family History Father Cancer Colon cancer, prostate cancer Hypertension Colon cancer Other CAD (coronary artery disease) Denies family history of Diabetes Clotting disorder Anesthesia complication Bleeding disorder Social History Smoking and tobacco/nicotine status: never used tobacco/nicotine Alcohol intake: never Substance/Drug Use: never Marital status: Current occupational status: retired Current occupation: Working at [employer] Vital Signs: Vital signs: Vital Signs Temperature 98.9 F 02/07/25 17:28 Pulse Rate 52 L 02/07/25 19:08 Respiratory Rate 18 02/07/25 19:00 Blood Pressure 137/51 02/07/25 19:08 Pulse Oximetry 95 02/07/25 19:08 Oxygen Delivery Me thod Room Air 02/07/25 18:40 MDM - Chest Pain Medical Decision Making Signout from Dr. Lubin at 6 PM. Patient here with chest pain, and low potassium. On reassessment I talked with her about her test results. Her troponin was unremarkable. Her potassium has improved from when it was checked this last week and is now 3.1. She is asymptomatic at this time. Patient had normal cardiac perfusion imaging 5 months ago. Her heart score is less than 3 putting her at less than 1.7% of M LISBETH. We discussed symptoms that should prompt immediate return to the emergency department. Will discharge home with precautions to return for worsening or changing symptoms. Lab Data 02/07/25 17:58 02/07/25 17:58 Radiology Impressions Chest X-Ray 02/07/25 17:30 IMPRESSION: Questionable small left pleural effusion, otherwise unremarkable chest radiograph. Laboratory Results WBC 9.78 10^3/uL (3.29-11.43) 02/07/25 17:58 RBC 4.32 10^6/uL (3.85-5.65) 02/07/25 17:58 Hgb 13.40 g/dL (11.27-16.99) 02/07/25 17:58 Hct 39.6 % (36-47) 02/07/25 17:58 MCV 91.7 fl (85-98) 02/07/25 17:58 MCH 31.0 pg (27-33) 02/07/25 17:58 MCHC 33.8 g/dL (30-55) 02/07/25 17:58 RDW 13.3 % (12.1-15.1) 02/07/25 17:58 Plt Count 225 10^3/cmm (157-399) 02/07/25 17:58 MPV 9.3 fL (7.4-10.4) 02/07/25 17:58 Neut % (Auto) 64.6 % 02/07/25 17:58 Lymph % (Auto) 27.8 % 02/07/25 17:58 [place] % (Auto) 5.7 % 02/07/25 17:58 Eos % (Auto) 1.2 % 02/07/25 17:58 Baso % (Auto) 0.4 % 02/07/25 17:58 Neut # (Auto) 6.31 10^3/uL (1.8-7.7) 02/07/25 17:58 Lymph # (Auto) 2.7 10^3/uL (0.8-4.8) 02/07/25 17:58 [place] # (Auto) 0.6 10^3/uL (0.2-0.9) 02/07/25 17:58 Eos # (Auto) 0.1 10^3/uL (0.0-0.8) 02/07/25 17:58 Baso # (Auto) 0.0 10^3/uL (0.0-0.1) 02/07/25 17:58 Nucleated RBC % (auto) 0 % 02/07/25 17:58 Nucleated RBCs # 0.0 /100WBC 02/07/25 17:58 Sodium 133 mmol/L (136-145) L 02/07/25 17:58 Potassium 3.1 mmol/L (3.5-5.1) L 02/07/25 17:58 Chloride 98 mmol/L (98-107) 02/07/25 17:58 Carbon Dioxide 22 mmol/L (22-29) 02/07/25 17:58 Anion Gap 16.1 (5-19) 02/07/25 17:58 BUN 10 mg/dL (8-23) 02/07/25 17:58 Creatinine 0.9 mg/dL (0.5-0.9) 02/07/25 17:58 GFR Calculation 62.3 mL/min (90-130) L 02/07/25 17:58 Glucose 125 mg/dL (65-115) H 02/07/25 17:58 Calculated Osmolality 277 mOsm/kg (285-295) L 02/07/25 17:58 Calcium 8.5 mg/dL (8.5-10.5) 02/07/25 17:58 Magnesium 1.9 mg/dL (1.7-2.3) 02/07/25 17:58 Total Bilirubin 0.4 mg/dL (0.15-1.2) 02/07/25 17:58 AST 12 U/L (0-32) 02/07/25 17:58 ALT 11 U/L (0-33) 02/07/25 17:58 Alkaline Phosphatase 70 U/L (35-105) 02/07/25 17:58 Creatine Kinase 70 U/L (26-192) 02/07/25 17:58 Troponin T Baseline 8 ng/L (0-10) 02/07/25 17:58 NT-Pro-B Natriuret Pep 842 pg/mL (0-125) H 02/07/25 17:58 Total Protein 7.0 g/dL (6.6-8.7) 02/07/25 17:58 Albumin 4.1 g/dL (3.5-5.2) 02/07/25 17:58 Globulin 2.9 g/dL (1.3-4.6) 02/07/25 17:58 All radiology interpretation(s) finalized by discharge Discharge Plan Discharge Patient Disposition: Home Clinical Impression: Chest pain of uncertain etiology Condition: Stable Prescriptions: No Action spironolactone 25 mg tablet 25 mg PO DAILY Qty: 30 6RF amlodipine 5 mg tablet 5 mg PO DAILY Qty: 30 3RF furosemide 40 mg tablet 40 mg PO QDAY Qty: 30 3RF omeprazole 40 mg capsule,delayed release(DR/EC) 40 mg PO DAILY Qty: 30 6RF nitroglycerin [Nitrostat] 0.4 mg tablet, sublingual 0.4 mg sublingual Q5M PRN (Reason: chest pain) Qty: 30 0RF Rx Instructions: do not exceed 3 doses per episode metoprolol succinate 50 mg tablet extended release 24 hr 50 mg PO DAILY Qty: 90 3RF valsartan 160 mg tablet 160 mg PO DAILY Qty: 90 3RF potassium chloride [Klor-Con M20] 20 mEq tablet,ER particles/crystals 20 meq PO BID Qty: 60 0RF aspirin [Adult Aspirin Regimen] 81 mg tablet,delayed release (DR/EC) 81 mg PO DAILY Qty: 90 0RF Discharge Orders: Discharge ED (Routine); Ordered 02/07/25 Ordered By: Celestine Valera Referrals: Roel Arizmendi MD [Primary Care Provider, Family Practice] Patient Instructions: Chest Pain (ED), Patient Portal & [facility] Instructions Print Language: Croatian Coding Level of Care Code ED Retail Management Trainee for Keyana Busby
[2025-02-07 18:05] LABS: Hematocrit 39.6 % (36-47); Hemoglobin 13.40 g/dL (11.27-16.99); Mean Corpuscular HGB Conc 33.8 g/dL (30-55); Mean Corpuscular Hemoglobin 31.0 pg (27-33); Mean Corpuscular Volume 91.7 fl (85-98); Nucleated Red Blood Cells % 0 %; Platelet Count 225 10^3/cmm (157-399); Red Blood Count 4.32 10^6/uL (3.85-5.65); White Blood Count 9.78 10^3/uL (3.29-11.43)
[2025-02-07 18:22] LABS: Troponin(5th) Baseline 8 ng/L (0-10)
[2025-02-07 18:40] VITALS: BP 116/54; PULSE 51; RESP 17; O2SAT 94
[2025-02-07 18:47] LABS: Alanine Aminotransferase 11 U/L (0-33); Albumin Level 4.1 g/dL (3.5-5.2); Alkaline Phosphatase 70 U/L (35-105); Anion Gap 16.1 (5-19); Aspartate Amino Transferase 12 U/L (0-32); Blood Urea Nitrogen 10 mg/dL (8-23); Calcium 8.5 mg/dL (8.5-10.5); Carbon Dioxide 22 mmol/L (22-29); Chloride 98 mmol/L (98-107); Creatinine Clr Calc Pharmacy 55.8072; Globulin 2.9 g/dL (1.3-4.6); Glucose 125 mg/dL (65-115); Magnesium 1.9 mg/dL (1.7-2.3); NT Pro B Type Natriuretic Pept 842 pg/mL (0-125); Osmolality Calculated 277 mOsm/kg (285-295); Potassium 3.1 mmol/L (3.5-5.1); Sodium 133 mmol/L (136-145); Total Protein 7.0 g/dL (6.6-8.7)
[2025-02-07 19:00] VITALS: BP 137/51; PULSE 51; RESP 18; O2SAT 95
[2025-02-07 19:08] VITALS: BP 137/51; PULSE 52; O2SAT 95
== END 2025-02-07 19:06 | disposition home or self-care (01) ==
PROVIDERS: Physician Assistant; Emergency Provider Family Medicine; PCP Family Medicine
DX: R07.9 Chest pain, unspecified (principal); Z79.82 Long term (current) use of aspirin
CPT/HCPCS: 71045; 80053; 82550; 83735; 83880; 84484; 85025; 93005; 99285; J9999

== ENCOUNTER → 2025-02-14 16:24 | Outpatient (BNVA) | payer MEDICARE, SELFPAY | PROVIDERS: PCP Family Medicine; Visit Provider Family Medicine | DX: E87.6 Hypokalemia (principal) | CPT/HCPCS: 80048; 83735 ==

== ENCOUNTER → 2025-03-31 14:22 | Outpatient (BNVA) | payer MEDICARE, SELFPAY | PROVIDERS: PCP Family Medicine; Visit Provider Internal Medicine | DX: R00.2 Palpitations (principal); I10 Essential (primary) hypertension; F17.210 Nicotine dependence, cigarettes, uncomplicated | CPT/HCPCS: 80048; 99213 ==